=== PATIENT | female | born 2005 | race Caucasian/White ===

== ENCOUNTER 2025-02-21 11:25 | Outpatient (AMB) | payer OTHER, SELFPAY ==
--- NOTE | 2025-02-21 11:57 | OBCLNT_ITS ---
Vital Signs 02/21/25 11:58 Height 1.6 m Height Method Stated Weight 62.652 kg Weight Measurement Method Standing Scale BMI 24.5 BP 106/86 H Blood Pressure Source Automatic Cuff Blood Pressure Location Left Upper Arm Position Sitting Respiration 18 Pulse 97 Pulse Source Monitor Temp 97.2 F Temp Source Oral Pulse Oximetry (%) 99 Oxygen Delivery Method Room Air Allergies/Home Meds Allergies & Medications Allergies No Known Allergies Allergy (Verified 02/21/25 11:59) Medication Reconciliation albuterol sulfate 90 mcg/actuation aerosol inhaler 2 puff inhalation Q6H #18 grams 12/18/17 [Rx Confirmed 02/21/25] azelastine 205.5 mcg (0.15 %) nasal spray 2 spray intranasal BID #30 mL 12/18/17 [Rx Confirmed 02/21/25] beclomethasone dipropionate 80 mcg/actuation aerosol inhaler (Qvar) 2 puff inhalation Q12H #8.7 grams 12/18/17 [Rx Confirmed 02/21/25] Intake Visit Data Collection New Patient or Established: New Patient not seen in past 3 years at [facility] (considered New) Reason for Visit:: , transfer of care at 26 weeks Seen by Clinical Staff ONLY (RN/MA): No Professional Builder Required: No Do You Feel Safe at Home: Yes Authorities Contacted: N/A PCP or OBGYN visit in last 3 months: No Hx Now: Yes Are you currently on any form of Control: No Pain Present Currently: No Pain Scale Used: Kiran-Barroso/Numerical Pain scale:: 0 Smoking Status Smoking Status: Never smoker Questionnaires Covid-19 Vaccine Questionnaire Has patient been vacinated for Covid-19 Have you been vacinated for Covid-19: No PHQ-9 PHQ-2 Over the last 2 weeks, how often have you been bothered by any of the following problems? 1. Little interest or pleasure in doing things: not at all 2. Feeling down, depressed, or hopeless: not at all Total score: 0 PHQ-9 4. Feeling tired or having little energy: Not at all 5. Poor appetite or overeating: Not at all 6. Feeling bad about yourself - or that you are a failure or have let yourself or your family down: Not at all 7. Trouble concentrating on things, such as reading the newspaper or watching television: Not at all 8. Moving or speaking so slowly that other people could have noticed? - Or the opposite - being so fidgety or restless that you have been moving around a lot more than usual: not at all 9. Thoughts that you would be better off or of hurting yourself in some way: Not at all If you checked off any problems, how difficult have these problems made it for you to do your work, take care of things at home, or get along with other people?: not difficult at all Source: Developed by Drs. Tim Burgess, Mimi Wade, Mike Cuevas and colleagues, with an educational claudia from [employer]. Depression screen completed yes Social History Living Situation History Marital Status: Single Lives With: Family Housing: House Housing Other:: Patient mother is with her today. Father the baby is not involved. Tobacco History Smoking Status: Never smoker Second Hand Smoke Exposure: No Alcohol History Alcohol Intake: Never Domestic Abuse History Do You Feel Safe at Home: Yes Past Medical History Past Medical History Have you ever been diagnosed with any of the following: Respiratory Problems Asthma: Yes (On two inhalers.) Reproductive Problems Endometriosis: No Fibroids: No Genital Herpes: No Gonorrhea: No Pelvic Inflammatory Disease: No Polycystic Ovarian Syndrome: No Previous Pregnancies: No Syphilis: No Endocrine Problems Diabetes Mellitus Type 2: No Blood Problems Anemia: No Psychologic Problems Depression: No Anxiety: No Other Problems Hospitalization: No Surgical History Appendectomy: No Cholecystectomy: No History of Present Illness HPI Narrative The patient is a 19-year-old G1, P0 who presents as a transfer of care. LMP 08/08/2024. EDC 05/15/2025. Patient is approximately 26 weeks today. She has had adequate care since 9 weeks. She used to live in [place]. She is not involved with the father of the baby and moved back home. Her mother is present with her today. Her labs are reviewed with her today that were done in [place] the date of the labs was 11/22/2024. Patient is O+, antibody screen negative, hepatitis B surface antigen negative ,rubella immune, RPR nonreactive, HIV negative her hemoglobin was normal when it was checked in November 2024 it was 13.2 and 39. Her NIPT was 46 XY and she has had genetic screening for 14 different genetic test that are on the chart that is negative. Today she reports good movement no contractions no loss of fluids. She does states she is allergic to codeine which makes her hot and causes nausea and vomiting. OB Initial Visit OB Flowsheet OB Flowsheet Initial Weight: Not Recorded Date -?-?-?-?-?-?-?-?-?-?-?-?- EGA Weight Edema CTX Effacement BP Fundal ht Pres Dilation Effacement Station Visit Note Alb Glu FHR Mov 02/21/25 -?-?-?-?-?-?-?-?-?-?-?-?- 28w 1d 62.652 kg 106/86 28 P atient presents with her mother. Transfer of care at 28 weeks. labs are reviewed today and within normal limits. Patient does need a structural survey ordered. 150 active Menstrual History Menstrual reliability: definite Flow: normal Menstrual regularity: regular Monthly: Yes On control pills at conception: No OB History : 1 Para: 0 Genetic Screening & History Genetic Screening/Teratology Counseling - Includes patient, baby's father, or anyone in either family with: Comments/Counseling: NIPT 46 XY, , genetic testing for 14 genes negative and on chart Infection History Other (see comments) Source: [employer] Assessment & Plan Diagnosis / Problem List (1) : Status: Acute Qualifiers: Weeks of gestation: 28 weeks Qualified Code(s): Z3A.28 - 28 weeks gestation of Office Procedures OB Clinic LOC & Office Proc's Nursing/Assessment Patient Status: Initial/New Patient OB Clinic Nursing Assessment: BP Monitoring, Medication Reconciliation, Update PMH in EMR and Vital Signs OB Clinic Coordination of Care: Consent,records obtained, informed consent, Education Simp Pt/Fam, Lab and Imaging orders and Staff clarify orders New Patient Charge New Patient Point Assignment: 1089 New Patient Point Charge: DIRECTOR OF ACCOUNTS PAYABLE Level 3 (0304-4802)
[2025-02-21 11:58] VITALS: BP 106/86; PULSE 97; RESP 18; TEMP 36.2; O2SAT 99; BMI 24.5
== END 2025-02-21 12:34 | disposition home or self-care (01) ==
LOC: HODSOBC 11:25
PROVIDERS: Supervising Provider Obstetrics & Gynecology; Visit Provider Obstetrics & Gynecology
DX: Z34.03 Encounter for supervision of normal first pregnancy, third trimester (principal); Z3A.28 28 weeks gestation of pregnancy
CPT/HCPCS: 99203; G0463

== ENCOUNTER → 2025-02-23 | Outpatient (CLI) | payer OTHER, SELFPAY ==
--- NOTE | 2025-02-23 10:10 | XR_ITS ---
Examination: Complete OB ultrasound greater than 14 weeks Date and time of exam: February 23, 2025 1023 hours INDICATIONS: Size dates discrepancy third trimester Findings: Viable intrauterine single fetus with single amniotic sac presentation cephalic spine maternal left Cardiac motion 137 BPM Placenta anterior grade 2 Umbilical cord insertion seen. Amniotic fluid index 15.1 cm Cervix 4.6 cm Ovaries obscured by bowel gas. Composite estimated gestational age based on BPD, head circumference, abdominal circumference, femur length is 29 weeks 5 days Estimated weight 1393 g. Survey of intracranial anatomy, spinal anatomy, abdominal anatomy, four-chamber heart performed with no abnormalities identified. Impression: Viable intrauterine gestation cephalic presentation Estimated gestational age 29 weeks 5 days Estimated weight 1393 g
== END | disposition home or self-care (01) ==
PROVIDERS: Referring Provider Obstetrics & Gynecology; Visit Provider Obstetrics & Gynecology
DX: O26.843 Uterine size-date discrepancy, third trimester (principal); Z3A.29 29 weeks gestation of pregnancy
CPT/HCPCS: 76805

== ENCOUNTER → 2025-02-23 | Outpatient (CLI) | payer OTHER, SELFPAY ==
[2025-02-23 10:45] LABS: Glucose,1 Hour PP 50gm Dose 185 mg/dL (80-140)
== END | disposition home or self-care (01) ==
PROVIDERS: Referring Provider Obstetrics & Gynecology; Visit Provider Obstetrics & Gynecology
DX: Z34.92 Encounter for supervision of normal pregnancy, unspecified, second trimester (principal)
CPT/HCPCS: 36415; 82950

== ENCOUNTER 2025-03-11 09:53 | Outpatient (AMB) | payer OTHER, SELFPAY ==
[2025-03-11 10:16] VITALS: BP 104/68; PULSE 91; RESP 18; TEMP 36.2; O2SAT 97; BMI 24.8
--- NOTE | 2025-03-11 10:16 | AMB.OBVISIT ---
Vital Signs 03/11/25 10:16 Height 1.6 m Height Method Stated Weight 63.673 kg Weight Measurement Method Standing Scale BMI 24.8 BP 104/68 Blood Pressure Source Automatic Cuff Blood Pressure Location Left Upper Arm Position Sitting Respiration 18 Pulse 91 Pulse Source Monitor Temp 97.2 F Temp Source Oral Pulse Oximetry (%) 97 Oxygen Delivery Method Room Air Allergies/Home Meds Allergies & Medications Allergies No Known Allergies Allergy (Verified 03/11/25 10:17) Medication Reconciliation albuterol sulfate 90 mcg/actuation aerosol inhaler 2 puff inhalation Q6H #18 grams 12/18/17 [Rx Confirmed 03/11/25] azelastine 205.5 mcg (0.15 %) nasal spray 2 spray intranasal BID #30 mL 12/18/17 [Rx Confirmed 03/11/25] beclomethasone dipropionate 80 mcg/actuation aerosol inhaler (Qvar) 2 puff inhalation Q12H #8.7 grams 12/18/17 [Rx Confirmed 03/11/25] Intake Visit Data Collection New Patient or Established: Established Patient (seen at [facility] within 3 years) Reason for Visit:: Return OB Seen by Clinical Staff ONLY (RN/MA): No Crochet Beader Required: No Do You Feel Safe at Home: Yes Authorities Contacted: N/A PCP or OBGYN visit in last 3 months: Yes Date of Last PCP or OBGYN visit: 02/21/25 Hx Now: Yes Are you currently on any form of Control: No Pain Present Currently: No Pain Scale Used: Kiran-Barroso/Numerical Pain scale:: 0 Smoking Status Smoking Status: Never smoker Questionnaires Covid-19 Vaccine Questionnaire Has patient been vacinated for Covid-19 Have you been vacinated for Covid-19: Yes PHQ-9 PHQ-2 Over the last 2 weeks, how often have you been bothered by any of the following problems? 1. Little interest or pleasure in doing things: not at all 2. Feeling down, depressed, or hopeless: not at all Total score: 0 PHQ-9 3. Trouble falling or staying asleep, or sleeping too much: Not at all 4. Feeling tired or having little energy: Not at all 5. Poor appetite or overeating: Not at all 6. Feeling bad about yourself - or that you are a failure or have let yourself or your family down: Not at all 7. Trouble concentrating on things, such as reading the newspaper or watching television: Not at all 8. Moving or speaking so slowly that other people could have noticed? - Or the opposite - being so fidgety or restless that you have been moving around a lot more than usual: not at all 9. Thoughts that you would be better off or of hurting yourself in some way: Not at all Total score: 0 If you checked off any problems, how difficult have these problems made it for you to do your work, take care of things at home, or get along with other people?: not difficult at all Source: Developed by Drs. Tim Burgess, Mimi Wade, Mike Cuevas and colleagues, with an educational claudia from [employer]. Depression screen completed yes Social History Living Situation History Marital Status: Single Lives With: Family Housing: House Housing Other:: Patient mother is with her today. Father the baby is not involved. Tobacco History Smoking Status: Never smoker Second Hand Smoke Exposure: No Alcohol History Alcohol Intake: Never Domestic Abuse History Do You Feel Safe at Home: Yes Past Medical History Past Medical History Have you ever been diagnosed with any of the following: Cardiology Problems Congestive Heart Failure: No Respiratory Problems Chronic Obstructive Pulmonary Disease (COPD): No Asthma: Yes (On two inhalers.) Genital/Urinary Problems Renal Disease: No Reproductive Problems Endometriosis: No Fibroids: No Genital Herpes: No Gonorrhea: No Pelvic Inflammatory Disease: No Polycystic Ovarian Syndrome: No Previous Pregnancies: No Syphilis: No Endocrine Problems Diabetes Mellitus Type 1: No Diabetes Mellitus Type 2: No Blood Problems Anemia: No Psychologic Problems Depression: No Anxiety: No Other Problems Hospitalization: No Surgical History Appendectomy: No Cholecystectomy: No History of Present Illness HPI Narrative Patient is a 19-year-old G1, P0 moved out here from [place]. She is not involved with father the baby. Her mother is supportive. She had good care and its up-to-date and on the chart. Care OB Visit Log OB Flowsheet Initial Weight: Not Recorded Date <del>?</del> EGA Weight Edema CTX Effacement BP Fundal ht Pres Dilation Effacement Station Visit Note Alb Glu FHR Mov 02/21/25 <del>?</del> 28w 1d 62.652 kg 106/86 28 Patient presents with her mother. Transfer of care at 28 weeks. labs are reviewed today and within normal limits. Patient does need a structural survey ordered. 150 active 03/11/25 <del>?</del> 30w 5d 63.673 kg 104/68 32 Good movement, no contractions, no loss of fluid, no vaginal bleeding active KIP Calculator Estimated Delivery Date Method Current WG Current Estimate 05/15/25 LMP (Certain) 31w 2d Other Estimates 05/12/25 Ultrasound #1 31w 5d Comments: care labs from [place]: O+ /antibody screen negative rubella immune/RPR nonreactive /HIV negative /hepatitis B surface antigen negative/GC negative/ Chlamydia negative/ urine culture negative/NIPT 46 XY// Structural survey [facility] 02/23/25 WNL Expected Delivery Route/Plan Anticipate patient desires epidural. Specific Issue/Plans FOB not involved. Mother is supportive. Notes Visit Date: 03/11/25 Last Updated by: Mary Caceres (OB Clinic)MD Patient presents for follow-up. She is doing well. Her 1 hour glucose was elevated at 182. I did order a 3-hour glucose. The baby is measuring a little big , the last ultrasound said the due date was 05/06/2025. EDC is 05/12/2025. I will order another ultrasound at 36 weeks for size. Office Procedures OB Clinic LOC & Office Proc's Nursing/Assessment Patient Status: Established Patient OB Clinic Nursing Assessment: BP Monitoring, Medication Reconciliation, Update PMH in EMR and Vital Signs OB Clinic Coordination of Care: Consent,records obtained, informed consent, Education Simp Pt/Fam, Lab and Imaging orders and Staff clarify orders Special Needs: Heart tones Established Patient Charge Established Patient Point Assignment: 120 Established Patient Point Charge: EP Level 4 (120-155)
[2025-03-11 16:36] LABS: Bilirubin,Urine Clinitek Negative (Negative); Blood,Urine Clinitek Negative (Negative); Glucose, Urine Clinitek Negative (Negative); Ketones,Urine Clinitek Negative (Negative); Leukocyte Esterase,Urine Clin 1+ (Negative); Nitrite,Urine Clinitek Negative (Negative); Protein,Urine Clinitek 1+ (Neg - Trace); Specific Gravity,Urine Clin >= 1.030 (1.001-1.030); Urobilinogen,Urine Clinitek 0.2 mg/dL (0.0-1.0)
== END 2025-03-11 10:48 | disposition home or self-care (01) ==
LOC: HODSOBC 09:53
PROVIDERS: Supervising Provider Obstetrics & Gynecology; Visit Provider Obstetrics & Gynecology
DX: O99.810 Abnormal glucose complicating pregnancy (principal); R73.9 Hyperglycemia, unspecified; Z3A.30 30 weeks gestation of pregnancy
CPT/HCPCS: 81001; 99214; G0463

== ENCOUNTER 2025-03-29 10:58 | Outpatient (AMB) | payer OTHER, SELFPAY ==
--- NOTE | 2025-03-29 11:04 | OBCLNT_ITS ---
Vital Signs 03/29/25 11:05 Height 1.6 m Height Method Stated Weight 65.828 kg Weight Measurement Method Standing Scale BMI 25.7 BP 112/77 Blood Pressure Source Automatic Cuff Blood Pressure Location Right Upper Arm Position Sitting Respiration 18 Pulse 99 Pulse Source Monitor Temp 98.0 F Temp Source Temporal Artery Scan Pulse Oximetry (%) 98 Oxygen Delivery Method Room Air Allergies/Home Meds Allergies & Medications Allergies No Known Allergies Allergy (Verified 03/29/25 11:07) Medication Reconciliation No Known Home Medications 03/29/25 [History Confirmed 03/29/25] Intake Visit Data Collection New Patient or Established: Established Patient (seen at [facility] within 3 years) Reason for Visit:: OBC 33W2D Seen by Clinical Staff ONLY (RN/MA): No Unix Systems Administrator Required: No Do You Feel Safe at Home: Yes Authorities Contacted: N/A PCP or OBGYN visit in last 3 months: Yes Date of Last PCP or OBGYN visit: 03/11/25 Hx Now: Yes Are you currently on any form of Control: No Pain Present Currently: No Pain Scale Used: Kiran-Barroso/Numerical Pain scale:: 0 Smoking Status Smoking Status: Never smoker Questionnaires Covid-19 Vaccine Questionnaire Has patient been vacinated for Covid-19 Have you been vacinated for Covid-19: Yes PHQ-9 PHQ-2 Over the last 2 weeks, how often have you been bothered by any of the following problems? 1. Little interest or pleasure in doing things: not at all 2. Feeling down, depressed, or hopeless: not at all Total score: 0 PHQ-9 3. Trouble falling or staying asleep, or sleeping too much: Not at all 4. Feeling tired or having little energy: Not at all 5. Poor appetite or overeating: Not at all 6. Feeling bad about yourself - or that you are a failure or have let yourself or your family down: Not at all 7. Trouble concentrating on things, such as reading the newspaper or watching television: Not at all 8. Moving or speaking so slowly that other people could have noticed? - Or the opposite - being so fidgety or restless that you have been moving around a lot more than usual: not at all 9. Thoughts that you would be better off or of hurting yourself in some way: Not at all Total score: 0 If you checked off any problems, how difficult have these problems made it for you to do your work, take care of things at home, or get along with other people?: not difficult at all Source: Developed by Drs. Tim Burgess, Mimi Wade, Mike Cuevas and colleagues, with an educational claudia from [employer]. Depression screen completed yes Social History Living Situation History Marital Status: Single Lives With: Family Housing: House Housing Other:: Patient mother is with her today. Father the baby is not involved. 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 She started her care in [place] and transferred to our clinic. Care OB Visit Log OB Flowsheet Initial Weight: Not Recorded Date -?-?-?-?-?-?-?-?-?-?-?-?- EGA Weight BP Alb Glu CTX Pres Fundal ht FHR Mov Dilation Station Effacement Hx Notes Visit Note 02/21/25 -?-?-?-?-?-?-?-?-?-?-?-?- 28w 1d 62.652 kg 106/86 28 150 active Patient presents with her mother. Transfer of care at 28 weeks. labs are reviewed today and within normal limits. Patient does need a structural survey ordered. 03/11/25 -?-?-?-?-?-?-?-?-?-?-?-?- 30w 5d 63.673 kg 104/68 32 active Good movement, no contractions, no loss of fluid, no vaginal bleeding 03/29/25 -?-?-?-?-?-?-?-?-?-?-?-?- 33w 2d 65.828 kg 112/77 34 144 active Good movement some back pain with some cramps no vaginal bleeding no loss of fluids KIP Calculator Estimated Delivery Date Method Current WG Current Estimate 05/15/25 LMP (Certain) 33w 2d Other Estimates 05/12/25 Ultrasound #1 33w 5d Comments: labs O+\antibody screen negative\rubella immune \RPR nonreactive\HIV negative\hepatitis B surface antigen negative\NIPT 46 XY. Expected Delivery Route/Plan 19-year-old who started care in [place] transferred care at 28 weeks. Anticipate patient desires epidural. Specific Issue/Plans FOB not involved. Mother is supportive. Notes Visit Date: 03/29/25 Last Updated by: Mary Caceres (OB Clinic)MD Ultrasound size and dates and position ordered breast pump prescription given Visit Date: 03/11/25 Last Updated by: Mary Caceres (OB Clinic)MD Patient presents for follow-up. She is doing well. Her 1 hour glucose was elevated at 182. I did order a 3-hour glucose. The baby is measuring a little big , the last ultrasound said the due date was 05/06/2025. EDC is 05/12/2025. I will order another ultrasound at 36 weeks for size. Office Procedures OB Clinic LOC & Office Proc's Nursing/Assessment Patient Status: Established Patient OB Clinic Nursing Assessment: Medication Reconciliation, Update PMH in EMR and Vital Signs OB Clinic Coordination of Care: Education Complex Pt/Fam, Consent,records obtained, informed consent, Lab and Imaging orders, Results/Orders obtained and Staff clarify orders Special Needs: Heart tones Established Patient Charge Established Patient Point Assignment: 115 Established Patient Point Charge: EP Level 3 (80-115) Assessment & Plan Diagnosis / Problem List (1) : Status: Acute Qualifiers: Weeks of gestation: 34 weeks Qualified Code(s): Z3A.34 - 34 weeks gestation of
[2025-03-29 11:05] VITALS: BP 112/77; PULSE 99; RESP 18; TEMP 36.7; O2SAT 98; BMI 25.7
== END 2025-03-29 11:27 | disposition home or self-care (01) ==
LOC: HODSOBC 10:58
PROVIDERS: Supervising Provider Obstetrics & Gynecology; Visit Provider Obstetrics & Gynecology
DX: O09.613 Supervision of young primigravida, third trimester (principal); Z3A.33 33 weeks gestation of pregnancy
CPT/HCPCS: 99213; G0463

== ENCOUNTER 2025-04-02 21:24 | Observation (INO) | payer OTHER, SELFPAY ==
[2025-04-02 21:53] VITALS: BP 117/74; PULSE 105; RESP 20; RESP 99; TEMP 37.3; BMI 26.2
[2025-04-02 22:07] VITALS: PULSE 104; O2SAT 97
[2025-04-02 22:12] VITALS: PULSE 89; O2SAT 98
[2025-04-02 22:17] VITALS: PULSE 89; O2SAT 98
== END 2025-04-02 22:39 | disposition home or self-care (01) ==
PROVIDERS: Admitting Provider Obstetrics & Gynecology; Visit Provider Obstetrics & Gynecology
DX: O36.8130 Decreased fetal movements, third trimester, not applicable or unspecified (principal); Z3A.33 33 weeks gestation of pregnancy; O26.893 Other specified pregnancy related conditions, third trimester; R10.2 Pelvic and perineal pain; M54.9 Dorsalgia, unspecified
CPT/HCPCS: 59025; 59899

== ENCOUNTER 2025-04-15 10:13 | Outpatient (AMB) | payer OTHER, SELFPAY ==
[2025-04-15 10:36] VITALS: BP 119/76; PULSE 74; RESP 18; TEMP 36.2; O2SAT 98
--- NOTE | 2025-04-15 10:36 | OBCLNT_ITS ---
Vital Signs 04/15/25 10:36 Weight 66.848 kg Weight Measurement Method Standing Scale BP 119/76 Blood Pressure Source Automatic Cuff Blood Pressure Location Left Upper Arm Position Sitting Respiration 18 Pulse 74 Pulse Source Monitor Temp 97.2 F Temp Source Oral Pulse Oximetry (%) 98 Oxygen Delivery Method Room Air Allergies/Home Meds Allergies & Medications Allergies No Known Allergies Allergy (Verified 04/15/25 10:40) Medication Reconciliation vits no.130-ferrous fum 27 mg iron-folic acid 800 mcg tablet ( Vitamin) 1 tab PO QDAY 04/02/25 [History Confirmed 04/15/25] Intake Visit Data Collection New Patient or Established: Established Patient (seen at [facility] within 3 years) Reason for Visit:: OBC Seen by Clinical Staff ONLY (RN/MA): No Senior Medical Technologist Required: No Do You Feel Safe at Home: Yes Authorities Contacted: N/A PCP or OBGYN visit in last 3 months: Yes Date of Last PCP or OBGYN visit: 04/02/25 Hx Now: Yes Are you currently on any form of Control: No Pain Present Currently: No Pain Scale Used: Kiran-Barroso/Numerical Pain scale:: 0 Smoking Status Smoking Status: Never smoker Questionnaires Covid-19 Vaccine Questionnaire Has patient been vacinated for Covid-19 Have you been vacinated for Covid-19: Yes PHQ-9 PHQ-2 Over the last 2 weeks, how often have you been bothered by any of the following problems? 1. Little interest or pleasure in doing things: not at all 2. Feeling down, depressed, or hopeless: not at all Total score: 0 PHQ-9 3. Trouble falling or staying asleep, or sleeping too much: Not at all 4. Feeling tired or having little energy: Not at all 5. Poor appetite or overeating: Not at all 6. Feeling bad about yourself - or that you are a failure or have let yourself or your family down: Not at all 7. Trouble concentrating on things, such as reading the newspaper or watching television: Not at all 8. Moving or speaking so slowly that other people could have noticed? - Or the opposite - being so fidgety or restless that you have been moving around a lot more than usual: not at all 9. Thoughts that you would be better off or of hurting yourself in some way: Not at all Total score: 0 If you checked off any problems, how difficult have these problems made it for you to do your work, take care of things at home, or get along with other people?: not difficult at all Source: Developed by Drs. Tim Burgess, Mimi Wade, Mike Cuevas and colleagues, with an educational claudia from [employer]. Depression screen completed yes Social History Living Situation History Lives With: Family Housing: House Housing Other:: Patient mother is with her today. Father the baby is not involved. 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 Transfer of care at 28 weeks. labs are reviewed today and within normal limits. Patient does need a structural survey ordered. 03/11/25 -?-?-?-?-?-?-?-?-?-?-?-?- 30w 5d 63.673 kg 104/68 32 active Good movement, no contractions, no loss of fluid, no vaginal bleeding 03/29/25 -?-?-?-?-?-?-?-?-?-?-?-?- 33w 2d 65.828 kg 112/77 34 144 active Good movement some back pain with some cramps no vaginal bleeding no loss of fluids 04/15/25 -?-?-?-?-?-?-?-?-?-?-?-?- 35w 5d 66.848 kg 119/76 active 1 90 -1 Good movement no contractions no loss of fluids no vaginal bleeding. Strep screen done today. Labor disc ussed. KIP Calculator Estimated Delivery Date Method Current WG Current Estimate 05/15/25 LMP (Certain) 35w 6d Other Estimates 05/12/25 Ultrasound #1 36w 2d Comments: care labs on the chart from [place] O+ /antibody negative/ rubella immune /RPR nonreactive /hepatitis B surface antigen negative /HIV negative/ urine culture negative /NIPT within normal limits Expected Delivery Route/Plan 19-year-old who started care in [place] transferred care at 28 weeks. Anticipate patient desires epidural. Specific Issue/Plans FOB not involved. Mother is supportive. Notes Visit Date: 04/15/25 Last Updated by: Mary Caceres (OB Clinic)MD Labor precautions given. Patient is interested in epidural. Her mother and her good friend will be in labor with her the father the baby is in [place] not going to be involved with this. All questions were answered. Patient has a adequate pelvis and is 190-1 on exam today. Group B strep swab was performed. Visit Date: 03/29/25 Last Updated by: Mary Caceres (OB Clinic)MD Ultrasound size and dates and position ordered breast pump prescription given Visit Date: 03/11/25 Last Updated by: Mary Caceres (OB Clinic)MD Patient presents for follow-up. She is doing well. Her 1 hour glucose was elevated at 182. I did order a 3-hour glucose. The baby is measuring a little big , the last ultrasound said the due date was 05/06/2025. EDC is 05/12/2025. I will order another ultrasound at 36 weeks for size. Office Procedures OB Clinic LOC & Office Proc's Nursing/Assessment Patient Status: Established Patient OB Clinic Nursing Assessment: Medication Reconciliation and Update PMH in EMR OB Clinic Coordination of Care: Education Complex Pt/Fam, Consent,records obtained, informed consent, Lab and Imaging orders, Results/Orders obtained and Staff clarify orders Special Needs: Heart tones Established Patient Charge Established Patient Point Assignment: 100 Established Patient Point Charge: EP Level 3 (80-115)
== END 2025-04-15 11:16 | disposition home or self-care (01) ==
LOC: HODSOBC 10:13
PROVIDERS: Supervising Provider Obstetrics & Gynecology; Visit Provider Obstetrics & Gynecology
DX: Z34.03 Encounter for supervision of normal first pregnancy, third trimester (principal); Z3A.35 35 weeks gestation of pregnancy; Z36.85 Encounter for antenatal screening for Streptococcus B
CPT/HCPCS: 99213; G0463

== ENCOUNTER → 2025-04-19 | Outpatient (CLI) | payer OTHER, SELFPAY ==
--- NOTE | 2025-04-19 08:19 | XR_ITS ---
Examination: Complete OB ultrasound greater than 14 weeks Date and time of exam: April 19, 2025 0826 hours INDICATIONS: Pelvic contractions beginning 5 days ago Findings: Viable intrauterine single fetus with single amniotic sac presentation cephalic Cardiac motion 137 BPM Placenta anterior grade 2 Umbilical cord insertion 3 vessel seen Amniotic fluid index 18.4 cm spine maternal left Ovaries obscured by bowel gas. Composite estimated gestational age based on BPD, head circumference, abdominal circumference, femur length is 36 weeks 0 days Estimated weight 2835 g. Survey of intracranial anatomy, spinal anatomy, abdominal anatomy, four-chamber heart performed with no abnormalities identified. Impression: Viable intrauterine gestation cephalic presentation.
== END | disposition home or self-care (01) ==
LOC: CDIM 07:38
PROVIDERS: Referring Provider Obstetrics & Gynecology; Visit Provider Obstetrics & Gynecology
DX: O32.9XX0 Maternal care for malpresentation of fetus, unspecified, not applicable or unspecified (principal); Z3A.36 36 weeks gestation of pregnancy
CPT/HCPCS: 76805

== ENCOUNTER 2025-04-20 14:47 | Outpatient (AMB) | payer OTHER, SELFPAY ==
--- NOTE | 2025-04-20 15:12 | AMB.OBVISIT ---
Vital Signs 04/20/25 15:16 Weight 67.642 kg Weight Measurement Method Standing Scale BP 123/71 Blood Pressure Source Automatic Cuff Blood Pressure Location Left Upper Arm Position Sitting Respiration 18 Pulse 80 Pulse Source Monitor Temp 97.2 F Temp Source Oral Pulse Oximetry (%) 98 Oxygen Delivery Method Room Air Allergies/Home Meds Allergies & Medications Allergies No Known Allergies Allergy (Verified 04/20/25 15:17) Medication Reconciliation vits no.130-ferrous fum 27 mg iron-folic acid 800 mcg tablet ( Vitamin) 1 tab PO QDAY 04/02/25 [History Confirmed 04/20/25] Intake Visit Data Collection New Patient or Established: Established Patient (seen at [facility] within 3 years) Reason for Visit:: OBC Seen by Clinical Staff ONLY (RN/MA): No Process Control Tech Required: No Do You Feel Safe at Home: Yes Authorities Contacted: N/A PCP or OBGYN visit in last 3 months: Yes Date of Last PCP or OBGYN visit: 04/15/25 Hx Now: Yes Are you currently on any form of Control: No Pain Present Currently: No Pain Scale Used: Kiran-Barroso/Numerical Pain scale:: 0 Smoking Status Smoking Status: Never smoker Questionnaires Covid-19 Vaccine Questionnaire Has patient been vacinated for Covid-19 Have you been vacinated for Covid-19: Yes PHQ-9 PHQ-2 Over the last 2 weeks, how often have you been bothered by any of the following problems? 1. Little interest or pleasure in doing things: not at all 2. Feeling down, depressed, or hopeless: not at all Total score: 0 PHQ-9 3. Trouble falling or staying asleep, or sleeping too much: Not at all 4. Feeling tired or having little energy: Not at all 5. Poor appetite or overeating: Not at all 6. Feeling bad about yourself - or that you are a failure or have let yourself or your family down: Not at all 7. Trouble concentrating on things, such as reading the newspaper or watching television: Not at all 8. Moving or speaking so slowly that other people could have noticed? - Or the opposite - being so fidgety or restless that you have been moving around a lot more than usual: not at all 9. Thoughts that you would be better off or of hurting yourself in some way: Not at all Total score: 0 If you checked off any problems, how difficult have these problems made it for you to do your work, take care of things at home, or get along with other people?: not difficult at all Source: Developed by Drs. Tim Burgess, Mimi Wade, Mike Cuevas and colleagues, with an educational claudia from [employer]. Depression screen completed yes Social History Living Situation History Lives With: Family Housing: House Housing Other:: Patient mother is with her today. Father the baby is not involved. 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 Transfer of care at 28 weeks. labs are reviewed today and within normal limits. Patient does need a structural survey ordered. 03/11/25 <del>?</del> 30w 5d 63.673 kg 104/68 32 active Good movement, no contractions, no loss of fluid, no vaginal bleeding 03/29/25 <del>?</del> 33w 2d 65.828 kg 112/77 34 144 active Good movement some back pain with some cramps no vaginal bleeding no loss of fluids 04/15/25 <del>?</del> 35w 5d 66.848 kg 119/76 active 1 90 -1 Good movement no contractions no loss of fluids no vaginal bleeding. Strep screen done today. Labor discussed. 04/20/25 <del>?</del> 36w 3d 67.642 kg 123/71 139 active Positive movement no contractions no bleeding feels a lot of pressure. KIP Calculator Estimated Delivery Date Method Current WG Current Estimate 05/15/25 LMP (Certain) 36w 3d Other Estimates 05/12/25 Ultrasound #1 36w 6d Expected Delivery Route/Plan 19-year-old who started care in [place] transferred care at 28 weeks. Anticipate patient desires epidural. Specific Issue/Plans FOB not involved. Mother is supportive. Notes Visit Date: 04/15/25 Last Updated by: Mary Ccaeres (OB Clinic)MD Labor precautions given. Patient is interested in epidural. Her mother and her good friend will be in labor with her the father the baby is in [place] not going to be involved with this. All questions were answered. Patient has a adequate pelvis and is 190-1 on exam today. Group B strep swab was performed. Visit Date: 03/29/25 Last Updated by: Mary Caceres (OB Clinic)MD Ultrasound size and dates and position ordered breast pump prescription given Visit Date: 03/11/25 Last Updated by: Mary Caceres (OB Clinic)MD Patient presents for follow-up. She is doing well. Her 1 hour glucose was elevated at 182. I did order a 3-hour glucose. The baby is measuring a little big , the last ultrasound said the due date was 05/06/2025. EDC is 05/12/2025. I will order another ultrasound at 36 weeks for size. Office Procedures OB Clinic LOC & Office Proc's Nursing/Assessment Patient Status: Established Patient OB Clinic Nursing Assessment: Medication Reconciliation, Update PMH in EMR and Vital Signs OB Clinic Coordination of Care: Education Complex Pt/Fam, Consent,records obtained, informed consent, Lab and Imaging orders, Results/Orders obtained and Staff clarify orders Special Needs: Heart tones Established Patient Charge Established Patient Point Assignment: 115 Established Patient Point Charge: EP Level 3 (80-115)
[2025-04-20 15:16] VITALS: BP 123/71; PULSE 80; RESP 18; TEMP 36.2; O2SAT 98
== END 2025-04-20 16:05 | disposition home or self-care (01) ==
LOC: HODSOBC 14:47
PROVIDERS: PCP Obstetrics & Gynecology; Referring Provider Obstetrics & Gynecology; Supervising Provider Obstetrics & Gynecology; Visit Provider Obstetrics & Gynecology
DX: Z34.03 Encounter for supervision of normal first pregnancy, third trimester (principal); Z3A.36 36 weeks gestation of pregnancy
CPT/HCPCS: 99213; G0463

== ENCOUNTER 2025-04-27 14:56 | Observation (INO) | payer OTHER, SELFPAY ==
[2025-04-27] VITALS (22 sets, daily range): BP systolic 122–153; BP diastolic 66–93; PULSE 68–96; RESP 18–98; TEMP 36.8; O2SAT 98–100; BMI 27.4
--- NOTE | 2025-04-27 15:24 | PD.LDPN ---
Documentation for date of: 04/27/25 OB Labor Progress Note Assessment and Plan Comments: Triage Note Agnes is a 19yo with SIUP at 36+wk presenting for abdominal cramping and HAMM x2 days. No lof, no vaginal bleeding. Normal movement. Current : PNC with Dr. Caceres. Transfer from [place] at 28wk. Elevated 1hr glucola, 3hr GTT ordered. ROS negative other than what was described above. Vitals wnl, afebrile General: well developed, well nourished, no acute distress Cardiac: normal heart rate Lungs: breathing without distress Abdomen: soft, gravid, non-tender, no rebound or guarding Extremities: no edema BLE SCE: /50/-3 NST: Reactive, +accels, no decels, mod yo Hobbs: irregular ctx Assessment: Agnes is a 19yo with SIUP at 36+wk with no evidence of labor based on SCE and toco. Tylenol given for headache which then improved. Vitals wnl, benign exam. Reassuring status. Plan: -Safe for discharge home at this time -Continue routine follow up with OBGYN within 1 week -Discussed return precautions Rosaline Jacobson MD
[2025-04-27] MEDS: ACETAMINOPHEN 500 MG TABLET 1000 MG PO (15:42)
== END 2025-04-27 16:55 | disposition home or self-care (01) ==
PROVIDERS: Admitting Provider Obstetrics & Gynecology; Visit Provider Obstetrics & Gynecology
DX: O26.893 Other specified pregnancy related conditions, third trimester (principal); Z3A.36 36 weeks gestation of pregnancy; R10.30 Lower abdominal pain, unspecified; R51.9 Headache, unspecified
CPT/HCPCS: 59025; 59899; A9270

== ENCOUNTER 2025-04-29 08:56 | Outpatient (AMB) | payer OTHER, SELFPAY ==
[2025-04-29 09:13] VITALS: BP 131/82; PULSE 79; RESP 17; TEMP 36.6; O2SAT 98; BMI 27.1
--- NOTE | 2025-04-29 09:13 | OBCLNT_ITS ---
Vital Signs 04/29/25 09:13 Height 1.6 m Height Method Stated Weight 69.513 kg Weight Measurement Method Standing Scale BMI 27.1 BP 131/82 H Blood Pressure Source Automatic Cuff Blood Pressure Location Right Upper Arm Position Sitting Respiration 17 Pulse 79 Pulse Source Monitor Temp 97.8 F Temp Source Temporal Artery Scan Pulse Oximetry (%) 98 Oxygen Delivery Method Room Air Allergies/Home Meds Allergies & Medications Allergies No Known Allergies Allergy (Verified 04/29/25 09:14) Medication Reconciliation vits no.130-ferrous fum 27 mg iron-folic acid 800 mcg tablet ( Vitamin) 1 tab PO QDAY 04/02/25 [History Confirmed 04/29/25] Intake Visit Data Collection New Patient or Established: Established Patient (seen at [facility] within 3 years) Reason for Visit:: OBC Seen by Clinical Staff ONLY (RN/MA): No Manager 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 1. Little interest or pleasure in doing things: not at all 2. Feeling down, depressed, or hopeless: not at all Total score: 0 PHQ-9 3. Trouble falling or staying asleep, or sleeping too much: Not at all 4. Feeling tired or having little energy: Not at all 5. Poor appetite or overeating: Not at all 6. Feeling bad about yourself - or that you are a failure or have let yourself or your family down: Not at all 7. Trouble concentrating on things, such as reading the newspaper or watching television: Not at all 8. Moving or speaking so slowly that other people could have noticed? - Or the opposite - being so fidgety or restless that you have been moving around a lot more than usual: not at all 9. Thoughts that you would be better off or of hurting yourself in some way: Not at all Total score: 0 If you checked off any problems, how difficult have these problems made it for you to do your work, take care of things at home, or get along with other people?: not difficult at all Source: Developed by Drs. Tim Burgess, Mimi Wade, Mike Cuevas and colleagues, with an educational claudia from [employer]. Depression screen completed yes Social History Living Situation History Marital Status: Single Lives With: Family Housing: House Housing Other:: Patient mother is with her today. Father the baby is not involved. 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 Transfer of care at 28 weeks. labs are reviewed today and within normal limits. Patient does need a structural survey ordered. 03/11/25 -?-?-?-?-?-?-?-?-?-?-?-?- 30w 5d 63.673 kg 104/68 32 active Good movement, no contractions, no loss of fluid, no vaginal bleeding 03/29/25 -?-?-?-?-?-?-?-?-?-?-?-?- 33w 2d 65.828 kg 112/77 34 144 active Good movement some back pain with some cramps no vaginal bleeding no loss of fluids 04/15/25 -?-?-?-?-?-?-?-?-?-?-?-?- 35w 5d 66.848 kg 119/76 active 1 90 -1 Good movement no contractions no loss of fluids no vaginal bleeding. Strep screen done today. Labor discussed. 04/20/25 -?-?-?-?-?-?-?-?-?-?-?-?- 36w 3d 67.642 kg 123/71 139 active Positive movement no contractions no bleeding feels a lot of pressure. 04/29/25 -?-?-?-?-?-?-?-?-?-?-?-?- 37w 5d 69.513 kg 131/82 occasional cephalic 38 154 active 1 90 -1 +FM occasional UCs, no LOF + pressure KIP Calculator Estimated Delivery Date Method Current WG Current Estimate 05/15/25 LMP (Certain) 37w 5d Other Estimates 05/12/25 Ultrasound #1 38w 1d Expected Delivery Route/Plan 19-year-old who started care in [place] transferred care at 28 weeks. Anticipate patient desires epidural. Specific Issue/Plans FOB not involved. Mother is supportive. Labs from February 28 scanned in the chart from [place]. See under previous medical records for detail. O+\antibody negative\rubella immune\RPR nonreactive\hepatitis B surface antigen negative\HIV negative Notes Visit Date: 04/29/25 Last Updated by: Mary Caceres (OB Clinic)MD GBBS negative. Labor precautions reviewed. Kick counts encouraged. Visit Date: 04/15/25 Last Updated by: Mary Caceres (OB Clinic)MD Labor precautions given. Patient is interested in epidural. Her mother and her good friend will be in labor with her the father the baby is in [place] not going to be involved with this. All questions were answered. Patient has a adequate pelvis and is 190-1 on exam today. Group B strep swab was performed. Visit Date: 03/29/25 Last Updated by: Mary Caceres (OB Clinic)MD Ultrasound size and dates and position ordered breast pump prescription given Visit Date: 03/11/25 Last Updated by: Mary Caceres (OB Clinic)MD Patient presents for follow-up. She is doing well. Her 1 hour glucose was elevated at 182. I did order a 3-hour glucose. The baby is measuring a little big , the last ultrasound said the due date was 05/06/2025. EDC is 05/12/2025. I will order another ultrasound at 36 weeks for size. Office Procedures OB Clinic LOC & Office Proc's Nursing/Assessment Patient Status: Established Patient OB Clinic Nursing Assessment: Medication Reconciliation, Update PMH in EMR and Vital Signs OB Clinic Coordination of Care: Complex Care and Chronic Disease 1-5, Consent,records obtained, informed consent, Education Simp Pt/Fam and Staff clarify orders Special Needs: Heart tones Established Patient Charge Established Patient Point Assignment: 115 Established Patient Point Charge: EP Level 3 (80-115)
== END 2025-04-29 09:36 | disposition home or self-care (01) ==
LOC: HODSOBC 08:56
PROVIDERS: PCP Obstetrics & Gynecology; Referring Provider Obstetrics & Gynecology; Supervising Provider Obstetrics & Gynecology; Visit Provider Obstetrics & Gynecology
DX: Z34.03 Encounter for supervision of normal first pregnancy, third trimester (principal); Z3A.37 37 weeks gestation of pregnancy
CPT/HCPCS: 99213; G0463

== ENCOUNTER 2025-05-03 18:51 | Inpatient (IN) | payer OTHER, SELFPAY ==
[2025-05-03] VITALS (9 sets, daily range): BP systolic 121–143; BP diastolic 78–90; PULSE 82–91; TEMP 37.1; BMI 27.1
--- NOTE | 2025-05-03 20:18 | ESHP_ITS ---
Documentation for date of: 05/03/25 OB Labor/Induct. HPI History of Present Illness Chief complaint: Ruptured membranes : 1 Para: 0 Term pregnancies: 0 pregnancies: 0 Living children: 0 History of Abortions: Spontaneous and Elective: 0 History of Vaginal deliveries: 0 History of sections: No History of : No Date of last menstrual period: 08/08/24 KIP: 05/15/25 Gestational Age (weeks): 38 Gestational Age (days): 1 Gestational age based on last menstrual period: 38 Indication for induction: other (Ruptured membranes) History of present illness: The patient is a 19-year-old who follows with the [facility] OB clinic who is reporting ruptured membranes earlier this evening. She was found to be grossly ruptured in triage and 1 to 2 cm dilated. She was gilbert irregularly and admitted in labor. Group B strep is negative. Of note she started her care in [place] and transferred to our clinic. Her [place] records are scanned on the chart. Patient is 38 1/7 weeks . History of Present Dating criteria: LMP confirmed by 2nd trimester US Adequate Care: Yes Ultrasounds: normal mid trimester US Obstetrical complications: none Medical complications: none Labs Maternal Blood Type: O Pos Labs: Positive: Rubella Titre, Negative: RPR, Hepatitis B, HIV and Group Beta Strep and Unknown: Chlamydia, Gonorrhea, Herpes Type 1, Herpes Type 2 and Covid-19 Past Medical History Surgical History SURGICAL: Negative Section Meds Home Medications and Allergies Home Medications ?Medication ?Instructions ?Recorded ?Confirmed ?Type vits no.130-ferrous fum 1 tab PO QDAY 5 05/03/25 History 27 mg iron-folic acid 800 mcg tablet ( Vitamin) Allergies Allergy/AdvReac Type Severity Reaction Status Date / Time No Known Allergies Allergy Verified 05/03/25 19:37 OB Exam Physical Exam Vital signs: Pulse BP 87 126/78 05/03/25 19:42 05/03/25 19:42 Detailed Labor and Delivery Exam Dilation (cm): 1-2 Effacement (%): 70 Cervix position: posterior station: -2 Consistency: soft Presentation: Vertex Membranes: ruptured Amniotic fluid: clear Baseline heart rate: 14 monitor accelerations: 15x15 monitor decelerations: None penitentiary variability: Moderate (11-25) Contraction frequency (min): Irregular Tachysystole: No Contraction intensity: Mild OB Assessment & Plan Assessment and Plan (1) : Status: Acute Assessment and plan: Admit patient with ruptured membranes. Cytotec induction if needed. (1) Qualifiers: Weeks of gestation: 34 weeks Qualified Code(s): Z3A.34 - 34 weeks gestation of
[2025-05-03 20:49] LABS: Basophils # (Auto) 0.0 Thou/mm3 (0.0-0.2); Basophils % (Auto) 0 % (0-2.5); Eosinophils # (Auto) 0.1 Thou/mm3 (0.0-0.5); Eosinophils % (Auto) 1 % (0-10); Hematocrit 33.5 % (36.0-46.0); Hemoglobin 12.0 g/dL (12.0-16.0); Immature Granulocytes Auto 0.05 Thou/mm3 (0.00-0.00); Lymphocytes # (Auto) 2.3 Thou/mm3 (1.0-4.8); Lymphocytes % (Auto) 21 % (10-50); Mean Corpuscular HGB Conc 35.8 g/dl (31.0-37.0); Mean Corpuscular Hemoglobin 30.5 pg (25.0-35.0); Mean Corpuscular Volume 85 fL (80-100); Monocytes # (Auto) 0.9 Thou/mm3 (0.0-0.8); Monocytes % (Auto) 8 % (0-12); Neutrophils # (Auto) 7.8 Thou/mm3 (1.8-7.7); Neutrophils % (Auto) 70 % (37-80); Nucleated Red Blood Cell # 0.00 Thou/mm3 (0.00-0.00); Nucleated Red Blood Cell % 0 /100 WBC (0); Platelet Count 243 Thou/mm3 (140-440); RDW Standard Deviation 40.0 fL (36.4-46.3); Red Blood Count 3.93 Miln/mm3 (4.00-5.20); White Blood Count 11.0 Thou/mm3 (4.5-11.0)
[2025-05-03 22:08] LABS: Syphilis Nonreactive (Nonreactive)
[2025-05-03] MEDS: RINGERS LACTATED 1000 ML 1,000 ML 100 ML IV (23:50)
[2025-05-03] MEDS: fentaNYL CIT INJ 50 mCg/ML AMP 2ML 100 MCG IVP (23:52)
[2025-05-04] VITALS (129 sets, daily range): BP systolic 114–197; BP diastolic 65–102; PULSE 59–200; RESP 16; TEMP 36.7–36.9; O2SAT 77–100
[2025-05-04] MEDS: fentaNYL CIT INJ 50 mCg/ML AMP 2ML 100 MCG IVP (02:11)
[2025-05-04] MEDS: RINGERS LACTATED 1000 ML 1,000 ML 100 ML IV (03:09)
--- NOTE | 2025-05-04 08:49 | PD.LDPN ---
Documentation for date of: 05/04/25 OB Labor Progress Note Pelvic Exam Dilation (cm): 10 Effacement (%): 100 station: +1 Amniotic membrane status: Ruptured Contractions Monitor mode: External Contraction frequency: 1-2 Contraction pattern: Coupling Contraction intensity: Strong Status status: Category l
[2025-05-04] MEDS: METHYLERGONOVINE INJ 0.2 MG/ML VIAL IM (10:15)
[2025-05-04] MEDS: OXYTOCIN in NS 20 units 20 UNIT/1,000 ML BAG 125 UNIT IV (10:15)
[2025-05-04] MEDS: LIDOCAINE HCL 1% 20 ML VIAL INFL (10:22)
[2025-05-04] MEDS: IBUPROFEN TAB 400 MG TABLET 800 MG PO (11:06)
[2025-05-04 11:20] LABS: Chlamydia trachomatis PCR Negative (Not Detect); Neisseria Gonorrhoeae DNA PCR Negative (Not Detect); Trichomonas Negative (Negative)
[2025-05-04] MEDS: BENZO/LANO/ALOE (Dermoplast) 60 GM CAN 1 SPRAY TOP (12:26)
[2025-05-04] MEDS: ACETAMINOPHEN 325 MG TABLET 650 MG PO ×2 (15:35→21:04)
[2025-05-04 16:59] LABS: Basophils # (Auto) 0.0 Thou/mm3 (0.0-0.2); Basophils % (Auto) 0 % (0-2.5); Eosinophils # (Auto) 0.0 Thou/mm3 (0.0-0.5); Eosinophils % (Auto) 0 % (0-10); Hematocrit 30.8 % (36.0-46.0); Hemoglobin 11.2 g/dL (12.0-16.0); Immature Granulocytes Auto 0.09 Thou/mm3 (0.00-0.00); Lymphocytes # (Auto) 1.5 Thou/mm3 (1.0-4.8); Lymphocytes % (Auto) 8 % (10-50); Mean Corpuscular HGB Conc 36.4 g/dl (31.0-37.0); Mean Corpuscular Hemoglobin 30.9 pg (25.0-35.0); Mean Corpuscular Volume 85 fL (80-100); Monocytes # (Auto) 0.9 Thou/mm3 (0.0-0.8); Monocytes % (Auto) 5 % (0-12); Neutrophils # (Auto) 17.0 Thou/mm3 (1.8-7.7); Neutrophils % (Auto) 87 % (37-80); Nucleated Red Blood Cell # 0.00 Thou/mm3 (0.00-0.00); Nucleated Red Blood Cell % 0 /100 WBC (0); Platelet Count 225 Thou/mm3 (140-440); RDW Standard Deviation 39.8 fL (36.4-46.3); Red Blood Count 3.62 Miln/mm3 (4.00-5.20); White Blood Count 19.5 Thou/mm3 (4.5-11.0)
[2025-05-05 03:18] VITALS: BP 131/75; PULSE 81; RESP 18; TEMP 36.9; O2SAT 97
--- NOTE | 2025-05-05 07:27 | PD.LDDELS ---
Vacuum Assisted Delivery General Patient Counseled by physician:: Yes Informed consent to patient:: Yes Estimated weight:: 3628.739 g Cervical dilation:: fully dilated station:: +2 position:: OA Molding:: No Caput:: No Vacuum Application Vacuum type:: Kiwi Vacuum application:: flexing median Total vacuum time (min):: 3 Cup Placement Flexion point identified:: Yes Cup approp. for head position:: Yes Maternal tissue excluded:: Yes Vacuum Procedure Number of pulls (contractions):: 3 Number of pop-offs:: 0 Recommended range maintained:: Yes Vacuum reduced between pulls:: No Advancement made each pull:: Yes Vacuum successful:: Yes Immediate [facility] Evaluation Immediate assessment:: no apparent injury Hand-off care to:: stud setter Additional Comments Additional comments: The Kiwi vacuum was placed for a total of 3 contractions. Progress was made every time the patient pushed. There were no pop offs. The vacuum was not released during pushing. Baby was delivered within 6 minutes of placing the vacuum. We waited for contractions every 2 to 3 minutes. At the baby was vigorous Apgars were 9 and 9 and the was placed directly on mom's chest with Dr Schultz present and a NICU nurse and RT in the room. Data (Fan) Data Hx Section: No Maternal Blood Type: O Pos Rubella Titre: Positive RPR: Non-reactive Labs: Negative: RPR, Hepatitis B, HIV and Group Beta Strep and Unknown: Chlamydia, Gonorrhea, Herpes Type 1 and Herpes Type 2 : 1 Term: 0 : 0 Livin Abortions: Spontaneous & Theraputic: 0 Delivery Data (Fan) Labor Data Initiation of labor: Augmentation Induction/Augmentation Agent: Cytotec-PO ROM date: 05/03/25 ROM time: 18:30 Amniotic membrane rupture type: Spontaneous Amniotic fluid description: Clear Delivery Data EDC: 05/15/25 EDC calculated by:: LMP Date of arrival to unit: 05/03/25 Onset of labor date: 05/04/25 Onset of labor time: 04:35 Complete dilation date: 05/04/25 Complete dilation time: 07:25 delivery date: 05/04/25 [facility] delivery time: 10:07 Gestational age (weeks): 38 Gestational age (days): 2 Placenta delivery date: 05/04/25 Placenta delivery time: 10:10 Stage 1 total time: Labor - Stage 1 Duration 2 hours and 50 minutes Delivered by: Dr. Caceres Delivery nurse: Riki Pearce RN [place] nurse: Marta MALLOY Flat Lock Machine Operator at delivery: Yes (Dr Schultz for [facility]) Support person(s) at delivery: Patients mother and sister Other staff at delivery: [place]ita Nation team leader surgery Method Delivery method: Operative Vaginal Delivery Presentation: Vertex position: OA Anesthesia Type Anesthesia Type: Epidural Delivery Room Medications Delivery room medications: Methergine 0.2 mg IM Placenta Placenta delivery description: Spontaneous Cord blood sent to lab: Yes cord blood collection: Cord Blood Type, Arterial Cord Blood Gas and Venous Cord Blood Gas Episiotomy Episiotomy description: None Lacerations #2: Perineal: 1st degree Labial: Bilateral first-degree labial lacerations Perineal repair Sutures used for repair: 4.0 Vicryl and other (2-0 chromic) EBL Estimated blood loss (ml): 300 Umbilical Cord cord description: 3 Vessels Additional Procedures The patient progressed to complete and began pushing approximately 8:30 in the morning on 05/04/25. She pushed approximately an hour and a half and stated she was too tired to push anymore. At this point the head was direct OA and in the +2 position. The NICU team was called for an eminent vacuum-assisted vaginal delivery. Dr. Castellanos was present at bedside prior to application of a Kiwi mighty VAC. After obtaining verbal informed consent by the patient thank you we mighty VAC was placed on the patient the baby's head. The patient then pushed through 3 more contractions delivering a liveborn male. There were no pop offs on the vacuum. Findings liveborn male in the NEAL presentation with no nuchal cord or meconium. Apgars were 9 and 9 weight was 8 pounds 0 ounces. The placenta was complete spontaneous grossly normal patient sustained a first-degree perineal laceration repaired using 2-0 and 4-0 chromic in a standard fashion she also had a left sulcal tear repaired with 2-0 chromic. Bilateral first-degree labia minora lacerations repaired using 4-0 chromic. Complications Complications: None [facility] Data (Fan) Data order: 1 's gender: Male Identification band number: [id number] weight (gms): 3630 g Weight (pounds): 8 lbs and 0.0 ozs [facility] length: 52 cm 1 minute: 9 5 minutes: 9
[2025-05-05 07:55] VITALS: BP 127/71; PULSE 79; RESP 16; TEMP 36.7; O2SAT 99
--- NOTE | 2025-05-05 09:44 | ESPR_ITS ---
Subjective Subjective Interval history: Patient is a 19-year-old -0-0-1 status post vacuum-assisted vaginal delivery yesterday morning. She is day #1. She had a first-degree perineal laceration and bilateral labia minora lacerations. She is doing well today and wants to go home. She is breast-feeding. She is resting comfortably in bed. She denies fevers chills or heavy vaginal bleeding. She states her perineum is healing well. She does not need Mallard to go home. Exam Vital Signs Temp Pulse Resp BP Pulse Ox O2 Del Method 98.1 F 79 16 127/71 99 Room Air 05/05/25 07:55 05/05/25 07:55 05/05/25 07:55 05/05/25 07:55 05/05/25 07:55 05/05/25 07:55 Narrative Exam Patient is alert and oriented x 3. Resting comfortably in bed. Fundus is firm. Extremities show no edema. Fundus is at umbilicus. Objective Labs 05/04/25 16:34 Labs: Laboratory Results - last 24 hr 05/04/25 05/04/25 02:20 16:34 WBC 19.5 H D RBC 3.62 L Hgb 11.2 L Hct 30.8 L MCV 85 MCH 30.9 MCHC 36.4 RDW Std Deviation 39.8 Plt Count 225 Neut % (Auto) 87 H Lymph % (Auto) 8 L [place] % (Auto) 5 Eos % (Auto) 0 Baso % (Auto) 0 Neut # (Auto) 17.0 H Lymph # (Auto) 1.5 [place] # (Auto) 0.9 H Eos # (Auto) 0.0 Baso # (Auto) 0.0 Immature Gran # (Auto) 0.09 H Absolute Nucleated RBC 0.00 Immature Gran % 1 H Nucleated RBC % 0 Chlam trachomat DNA PCR Negative N.gonorrhoeae DNA (PCR) Negative Trichomonas DNA Probe Negative Assessment & Plan Problem List (1) Term delivered: Status: Acute Assessment and plan: Patient is day 1. Doing well. Discharge instructions given. See discharge summary for further details. Follow-up in clinic in 6 weeks. Time Spent With Patient Time: Total time spent is greater than 50% in coordination of care (as documented) at patient's floor/unit and/or counseling patient:
--- NOTE | 2025-05-05 09:51 | PD.LDDS ---
DS: Providers Provider Date of admission: 05/03/25 19:45 Primary care physician: Physician No Primary/Family Admitting Provider: Mary Caceres MD ([facility]) Attending Provider on Admission: Manjinder Melgoza MD Consults: 05/04/25 10:36 Referral Routine Comment: Attending Provider on DC: Mary Caceres MD ([facility]) Discharging Provider: Mary Caceres MD ([facility] Clinic) Anticipated date of discharge: 05/05/25 DS: Diagnosis Discharge Diagnosis (1) Term delivered: Status: Acute Assessment & Plan: Patient is doing very well. She is stable. Charge instructions given. Labs and vital signs within normal limits. Her mother is very supportive and will be there to help with the baby. Father the baby is not involved. Problem List Completed Was Problem List Reviewed/Reconciled?: Yes Summary/Hosp Course Brief History: The patient is a 19-year-old who follows with the [facility] who is reporting ruptured membranes earlier this evening. She was found to be grossly ruptured in triage and 1 to 2 cm dilated. She was gilbert irregularly and admitted in labor. Group B strep is negative. Of note she started her care in [place] and transferred to our clinic. Her [place] records are scanned on the chart. Patient is 38 1/7 weeks . The patient was admitted. She underwent an uncomplicated vacuum assisted vaginal delivery for maternal exhaustion and pushing 90 minutes on 05/04/2025. She had a first-degree perineal laceration and bilateral labial lacerations. Please see delivery note for further details. day #1 patient was doing well, she was ambulating, pain was controlled with ibuprofen and Tylenol, she is breast-feeding well. Her lochia was mild. Her hemoglobin and vital signs were stable. She was discharged home day #1 in stable condition Peripartum Data Delivery Method: Operative Vaginal Delivery Episiotomy Description: None Laceration Description: yes and see Delivery Summary Procedures: Vacuum-assisted vaginal delivery with first-degree perineal laceration and bilateral labial lacerations complications: none Status at Discharge Cognitive/behavioral status at discharge: Patient is alert and oriented x 3 in no apparent distress Functional status at discharge: independent ambulation Overall status at discharge: patient is progressing back to baseline Time Spent with Patient Time attestation: Total time spent providing and/or coordinating discharge services: Time spent: Less than 30 minutes Specific discharge activities: No intercourse tampons douching bathtubs swimming pools x 6 weeks. Call for fevers heavy vaginal bleeding or depression. Exam Vital Signs Temp Pulse Resp BP Pulse Ox O2 Del Method 98.1 F 79 16 127/71 99 Room Air 05/05/25 07:55 05/05/25 07:55 05/05/25 07:55 05/05/25 07:55 05/05/25 07:55 05/05/25 07:55 Narrative Exam Fundus is firm at umbilicus no significant edema Discharge Plan Plan Patient Disposition: HOME (Self Care) Disposition Comment: Stable Prescriptions/Referrals Prescriptions/Med Rec: New acetaminophen 325 mg Tablet 650 mg PO Q4H PRN (Reason: See Comments) Qty: 60 0RF Dermoplast (with menthol) 20-0.5 % Aerosol 1 spray top PRN PRN (Reason: Perineal Discomfort) Qty: 1 0RF ibuprofen 400 mg Tablet 800 mg PO Q8H PRN (Reason: See Comments) Qty: 60 0RF docusate sodium 100 mg Capsule 100 mg PO BID Qty: 60 0RF Continued Vitamin 27 mg iron- 800 mcg tablet 1 tab PO QDAY Referrals: No Primary/Family,Physician [Primary Care Provider] - Patient/Caregiver Discharge Instructions Discharge Activity: activity as tolerated Other Discharge Activity Instructions:: Pelvic rest x 6 weeks. No intercourse tampons douching swimming pools bathtubs x 6 weeks. Follow-up in 6 weeks. Other Discharge Diet Instructions: General diet. Drink lots of water. Education Materials: After a Vaginal , After Delivery Marion Concerns, Breast Care After , : Caring for Yourself Print Language: Azeri Activity Restrictions/Additional Instructions: Call for fevers greater than 100.4 degrees, severe depression, for severe vaginal bleeding. Stand Alone Forms: Contractor Copilot Info., Patient Portal Info Letter Discharge Order Discharge Orders: Discharge (Routine); Ordered 05/05/25 Ordered By: Mary Caceres (OB Clinic) Planned Discharge Date 05/05/25
[2025-05-05 11:30] VITALS: BP 122/75; PULSE 82; RESP 16; TEMP 36.8; O2SAT 95
[2025-05-05] MEDS: ACETAMINOPHEN 325 MG TABLET 650 MG PO (11:46)
[2025-05-05] MEDS: BENZO/LANO/ALOE (Dermoplast) 60 GM CAN 1 SPRAY TOP (13:00)
== END 2025-05-05 14:45 | disposition home or self-care (01) | DRG 807 ==
LOC: S4SX 05-04 10:13 → S4NX 05-04 12:38
PROVIDERS: Admitting Provider Obstetrics & Gynecology; Visit Provider Specialist
DX: O42.02 Full-term premature rupture of membranes, onset of labor within 24 hours of rupture (principal); Z37.0 Single live birth; O70.0 First degree perineal laceration during delivery; Z3A.38 38 weeks gestation of pregnancy
CPT/HCPCS: 36415; 59025; 59409; 85025; 86780; 86850; 86900; 86901; 87081; 87491; 87591; 87661; 94762; J2210; J2590; J3010; J3490; J7120; A9270

== ENCOUNTER 2025-07-05 08:53 | Outpatient (AMB) | payer OTHER, SELFPAY ==
--- NOTE | 2025-07-05 09:22 | AMBOBPPN_ITS ---
Vital Signs 07/05/25 09:23 Weight 54.941 kg Weight Measurement Method Standing Scale BP 103/61 Blood Pressure Source Automatic Cuff Blood Pressure Location Left Upper Arm Position Sitting Respiration 16 Pulse 101 H Pulse Source Monitor Temp 97.2 F Temp Source Oral Pulse Oximetry (%) 98 Oxygen Delivery Method Room Air Allergies/Home Meds Allergies & Medications Allergies codeine Allergy (Mild, Verified 07/05/25 09:23) Nausea, vomiting, dizziness Medication Reconciliation vits no.130-ferrous fum 27 mg iron-folic acid 800 mcg tablet ( Vitamin) 1 tab PO QDAY 04/02/25 [History Confirmed 07/05/25] acetaminophen 325 mg tablet 650 mg (2 x 325 mg) PO Q4H PRN See Comments #60 tabs 05/05/25 [Rx Confirmed 07/05/25] benzocaine 20 %-menthol 0.5 % topical aerosol (Dermoplast (with menthol)) 1 spray top PRN PRN Perineal Discomfort #1 appful 05/05/25 [Rx Confirmed 07/05/25] docusate sodium 100 mg capsule 100 mg PO BID #60 caps 05/05/25 [Rx Confirmed 07/05/25] ibuprofen 400 mg tablet 800 mg (2 x 400 mg) PO Q8H PRN See Comments #60 tabs 05/05/25 [Rx Confirmed 07/05/25] norethindrone 1.5 mg-ethinyl estradiol 30 mcg(21)/iron 75 mg(7) tablet ([place] Fe 1.5/30 (28)) 1 tab PO QDAY #84 tabs 07/05/25 [Rx] Intake Visit Data Collection New Patient or Established: Established Patient (seen at [facility] within 3 years) Reason for Visit:: visit Seen by Clinical Staff ONLY (RN/MA): No Cad Draftsman Required: No Do You Feel Safe at Home: Yes Authorities Contacted: N/A PCP or OBGYN visit in last 3 months: Yes Date of Last PCP or OBGYN visit: 05/05/25 Hx Now: No Are you currently on any form of Control: No Last menstrual period: 07/02/25 Pain Present Currently: No Pain Scale Used: Kiran-Barroso/Numerical Pain scale:: 0 Smoking Status Smoking Status: Never smoker 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 Medical History Past Medical History: No Hx Neurological Disorders, No Hx Cardiac Disorders, No Hx Cancer, No Hx Blood Disorders, No Hx Anemia, No Hx Gastrointestinal Disorders, No Hx Renal Disease, No Hx Diabetes Mellitus Type 1, No Hx Diabetes Mellitus Type 2, No Hx Tubal Ligation, No Hx Hysterectomy and No Hx Polycystic Ovarian Syndrome Questionnaires Covid-19 Vaccine Questionnaire Has patient been vacinated for Covid-19 Have you been vacinated for Covid-19: Yes Social History Living Situation History Marital Status: Single Lives With: Family Housing: House Housing Other:: Patient mother is a personal injury litigation paralegal. Father the baby is not involved. Tobacco History Smoking Status: Never smoker Second Hand Smoke Exposure: No Alcohol History Alcohol Intake: Never Domestic Abuse History Do You Feel Safe at Home: Yes EPDS - PP Depression Screening Finley Pospartum Depression Screen I have been able to laugh and see the funny side of things: (0) As much as I always could I have looked forward with enjoyment to things: (0) As much as I ever did I have blamed myself unnecessarily when things went wrong: (0) No, never I have been anxious or worried for no good reason: (0) No, not at all I have felt scared or panicky for no very good reason: (0) No, not at all Things have been getting on top of me: (0) No, I have been coping as well as ever I have been so unhappy that I have had difficulty sleeping: (0) No, not at all I have felt sad or miserable: (0) No, not at all I have been so unhappy that I have been crying: (0) No, never The thought of harming myself has occurred to me: (0) Never Total Score: EPDS Score: Referral is indicated for score of 9 or more, suicidal, or if provider believes patient is depressed regardless of score.: 0 EPDS completed yes Care OB Visit Log OB Flowsheet Initial Weight: Not Recorded Date -?-?-?-?-?-?-?-?-?-?-?-?- EGA Weight BP Alb Glu CTX Pres Fundal ht FHR Mov Dilation Station Effacement Hx Notes Visit Note 02/21/25 -?-?-?-?-?-?-?-?-?-?-?-?- 28w 1d 62.652 kg 106/86 28 150 active Patient presents with her mother. Transfer of care at 28 weeks. labs are reviewed today and within normal limits. Patient does need a structural survey ordered. 03/11/25 -?-?-?-?-?-?-?-?-?-?-?-?- 30w 5d 63.673 kg 104/68 32 active Good movement, no contractions, no loss of fluid, no vaginal bleeding 03/29/25 -?-?-?-?-?-?-?-?-?-?-?-?- 33w 2d 65.828 kg 112/77 34 144 active Good movement some back pain with some cramps no vaginal bleeding no loss of fluids 04/15/25 -?-?-?-?-?-?-?-?-?-?-?-?- 35w 5d 66.848 kg 119/76 active 1 90 -1 Good movement no contractions no loss of fluids no vaginal bleeding. Strep screen done today. Labor discussed. 04/20/25 -?-?-?-?-?-?-?-?-?-?-?-?- 36w 3d 67.642 kg 123/71 139 active Positive movement no contractions no bleeding feels a lot of pressure. 04/29/25 -?-?-?-?-?-?-?-?-?-?-?-?- 37w 5d 69.513 kg 131/82 occasional cephalic 38 154 active 1 90 -1 +FM occasional UCs, no LOF + pressure KIP Calculator Estimated Delivery Date Method Current WG Current Estimate 05/15/25 LMP (Certain) 47w 5d Other Estimates 05/12/25 Ultrasound #1 48w 1d Expected Delivery Route/Plan 19-year-old who started care in [place] transferred care at 28 weeks. Anticipate patient desires epidural. Specific Issue/Plans FOB not involved. Mother is supportive. Labs from February 28 scanned in the chart from [place]. See under previous medical records for detail. O+\antibody negative\rubella immune\RPR n onreactive\hepatitis B surface antigen negative\HIV negative Notes Visit Date: 04/29/25 Last Updated by: Mary Caceres (OB Clinic)MD GBBS negative. Labor precautions reviewed. Kick counts encouraged. Visit Date: 04/15/25 Last Updated by: Mary Caceres ([facility] Clinic)MD Labor precautions given. Patient is interested in epidural. Her mother and her good friend will be in labor with her the father the baby is in [place] not going to be involved with this. All questions were answered. Patient has a adequate pelvis and is 190-1 on exam today. Group B strep swab was performed. Visit Date: 03/29/25 Last Updated by: Mary Caceres ([facility] Clinic)MD Ultrasound size and dates and position ordered breast pump prescription given Visit Date: 03/11/25 Last Updated by: Mary Caceres ([facility] Clinic)MD Patient presents for follow-up. She is doing well. Her 1 hour glucose was elevated at 182. I did order a 3-hour glucose. The baby is measuring a little big , the last ultrasound said the due date was 05/06/2025. EDC is 05/12/2025. I will order another ultrasound at 36 weeks for size. HPI Interval History: The patient is a 19-year-old -0-0-1 status post vacuum-assisted vaginal delivery by Dr. Ruth Caceres 05/04/2025 for maternal exhaustion. The baby weighed 8 pounds at . She had a first-degree perineal laceration she is already sexually active but using condoms. She is interested in control pills for contraception. Patient states she tried the Nexplanon in the past was not happy with it. Of note the father the baby is not involved this is a new relationship with a young man in the [place]. He does not have any children. Was or delivery considered high risk: No Delivery type: vaginal Was labor induced: no Gestational age at delivery (weeks): 38 Delivery date: 05/04/25 Delivering provider: Ruth Caceres MD Delivery complications: No Delivery complications comment: Vacuum-assisted vaginal delivery for maternal exhaustion Is patient : No Is patient sexually active: Yes Contraception planned: control pills Exam General Limitations: no limitations General Appearance: alert, in no apparent distress, comfortable, cooperative, healthy appearing and well groomed Chest Chest inspection: Present normal inspection and symmetric chest wall rise Resp Respiratory exam: Present normal lung sounds bilaterally Card Cardiovascular exam: Present regular rate, normal rhythm and normal heart sounds Abdominal Abdominal exam: Present soft and normal bowel sounds Extremities Extremities exam: Present normal inspection and full ROM Psych Psychiatric exam: Present normal affect and normal mood Skin Skin exam: Present warm, dry, intact and normal color Office Procedures OB Clinic LOC & Office Proc's Nursing/Assessment Patient Status: Established Patient OB Clinic Nursing Assessment: Medication Reconciliation, Update PMH in EMR and Vital Signs OB Clinic Coordination of Care: Education Complex Pt/Fam, Consent,records obtained, informed consent, Lab and Imaging orders and Staff clarify orders Established Patient Charge Established Patient Point Assignment: 80 Post Follow-up Visit Post Follow up Visit: Yes Assessment & Plan Diagnosis / Problem List (1) Routine Follow-Up: Care Contraception planned: control pills (FP) Control Last menstrual period: 06/25/25 Diet Number of meals per day: 3 Bonding With Infant Depression and anxiety: None Tobacco Smoking Status: Never smoker (FRAME NAILER) Details: The patient is a 19-year-old -0-0-1 status post vacuum-assisted vaginal del shereen after pushing almost 2 hours on 05/04/25. Her son weighed 8 pounds 0 ounces. She tried to breast-feed and for 2 weeks but states she did not get any milk. She is now giving him Norberto's goat formula. He is up to 14 pounds. She states her last Pap smear was age 17. We did discuss contraception she states she had the Nexplanon and did not like how this made her feel. She is willing to try control pills she is dating a man in the [place]. The father of the baby is not involved. Patient's mother is a personal injury litigation paralegal and is very involved with helping with the baby. Patient will go back to school once the baby is about 6 months old. She understands she has to use condoms until she is on her control for a whole month. She will start the control with her next cycle. 2hr glucose: No Return of menses: Yes Is last menstrual period known: Yes Last menstrual period: 06/25/25 : 1 Parity: 1 Resuming intercourse: Yes Gender: male Date of delivery: 05/04/25 Route of delivery: vacuum extraction Delivering provider: Dr Ruth Caceres Order: cortez Delivery outcome: liveborn Interim details: bottle feeding Interim complaints: none concerns: none Finley score: 0 FRAME NAILER: Papsmear Pap Smear Procedure Pre-op diagnosis general: Annual Exam Post-op diagnosis procedure note: Same Chaparone in room during procedure?: No Procedure position: lithotomy Speculum inserted, cervix visualized: Yes Cervical appearance: normal Collection method: spatula and cytobrush Specimen placed in liquid-based cytology medium: Yes Complications: No Patient tolerated procedure well: Yes Follow up pending results: phone call Procedure Notes:: Pap with GC/Chlam checked Papsmear completed: yes
[2025-07-05 09:23] VITALS: BP 103/61; PULSE 101; RESP 16; TEMP 36.2; O2SAT 98
== END 2025-07-05 10:21 | disposition home or self-care (01) ==
LOC: HODSOBC 08:53
PROVIDERS: Supervising Provider Obstetrics & Gynecology; Visit Provider Obstetrics & Gynecology
DX: Z39.2 Encounter for routine postpartum follow-up (principal); Z30.011 Encounter for initial prescription of contraceptive pills; Z12.4 Encounter for screening for malignant neoplasm of cervix; Z88.5 Allergy status to narcotic agent
CPT/HCPCS: 59430; 99213; Q0091; G0463